=== PATIENT | female | born 1945 | race American Indian/Alaskan Native ===

== ENCOUNTER 2019-05-15 18:41 | Observation (INO) | payer MEDICARE ==
[2019-05-15] MEDS ORDERED: ASPIRIN PO ONE (19:10)
--- NOTE | 2019-05-15 19:49 | Emergency Department Report ---
ED Chest Pain HPI - General Chief Complaint: Chest Pain Stated Complaint: CHEST PAIN Time Seen by Provider: 05/15/19 19:24 Source: police Mode of arrival: Stretcher Limitations: No Limitations - History of Present Illness Initial Comments: This is a 73-year-old -[place] female who presents to the ED with chest discomfort, 6 out of 10, pressure, left-sided, radiating to her shoulders. She is a smoker, has a history of hypertension, rates his symptoms as severe in severity. She denies any exacerbating factors. She took some nitroglycerin wh en the pain started, with mild relief. She denies any diaphoresis, nausea, vomiting, previous episode of chest pain. MD Complaint: chest pain -: Gradual Onset: during rest Pain Location: left chest Pain Radiation: none Severity: moderate Severity scale (0 -10): 6 Quality: tightness Consistency: now resolved Improves With: nitroglycerin Worsens With: nothing re: denies: nausea, vomting, diaphoresis, dyspnea, sense of impending doom Other Symptoms: denies: cough, fever, syncope Treatments Prior to Arrival: none - Related Data Home Medications Medication Instructions Recorded Confirmed Last Taken Unobtainable 05/15/19 05/15/19 Unknown Allergies Allergy/AdvReac Type Severity Reaction Status Date / Time No Known Allergies Allergy Verified 05/15/19 18:57 Heart Score - HEART Score History: Moderately suspicious EKG: Non-specific Age: > 65 Risk factors: 1-2 risk factors Troponin: < normal limit HEART Score: 5 ED Review of Systems ROS: Stated complaint: CHEST PAIN Other details as noted in HPI Comment: All other systems reviewed and negative ENT: denies: ear pain Respiratory: denies: cough Cardiovascular: chest pain ED Past Medical Hx - Past Medical History Previous Medical History?: Yes Hx COPD: Yes Additional medical history: ANXIETY - Surgical History Past Surgical History?: Yes Additional Surgical History: tonsils, hysterectomy - Social History Smoking Status: Current Every Day Smoker Substance Use Type: None - Medications Home Medications: Home Medications Medication Instructions Recorded Confirmed Last Taken Type Unobtainable 05/15/19 05/15/19 Unknown History ED Physical Exam - General Limitations: No Limitations General appearance: alert, in no apparent distress - Head Head exam: Present: atraumatic, normocephalic - Eye Eye exam: Present: normal appearance, PERRL, EOMI Pupils: Present: normal accommodation - ENT ENT exam: Present: normal exam, normal orophraynx - Neck Neck exam: Present: normal inspection - Respiratory Respiratory exam: Present: normal lung sounds bilaterally - Cardiovascular Cardiovascular Exam: Present: regular rate, normal rhythm - GI/Abdominal GI/Abdominal exam: Present: soft, normal bowel sounds - Extremities Exam Extremities exam: Present: normal inspection - Back Exam Back exam: Present: normal inspection - Neurological Exam Neurological exam: Present: alert, oriented X3, CN II-XII intact - Psychiatric Psychiatric exam: Present: normal affect, normal mood - Skin Skin exam: Present: warm ED Course Vital Signs 05/15/19 05/15/19 05/15/19 18:56 19:05 19:11 Temperature 97.8 F Pulse Rate 81 Respiratory 16 Rate Blood Pressure 162/79 Blood Pressure 152/84 [Left] O2 Sat by Pulse 96 Oximetry 05/15/19 05/15/19 05/15/19 19:16 19:21 19:30 Temperature Pulse Rate 67 64 Respiratory 17 19 15 Rate Blood Pressure 162/79 162/79 Blood Pressure [Left] O2 Sat by Pulse 99 97 98 Oximetry 05/15/19 05/15/19 05/15/19 19:46 20:00 20:16 Temperature Pulse Rate 64 65 61 Respiratory 14 13 15 Rate Blood Pressure 162/79 152/71 152/71 Blood Pressure [Left] O2 Sat by Pulse 99 97 99 Oximetry 05/15/19 05/15/19 05/15/19 20:30 20:54 21:00 Temperature Pulse Rate Respiratory Rate Blood Pressure 152/71 152/71 152/71 Blood Pressure [Left] O2 Sat by Pulse 80 L 83 L 81 L Oximetry 05/15/19 05/15/19 05/15/19 21:16 21:30 21:46 Temperature Pulse Rate 67 Respiratory 12 Rate Blood Pressure 152/71 152/71 163/70 Blood Pressure [Left] O2 Sat by Pulse 81 L 79 L 100 Oximetry 05/15/19 05/15/19 05/15/19 22:00 22:16 22:30 Temperature Pulse Rate 60 Respiratory 20 Rate Blood Pressure 163/70 152/71 152/71 Blood Pressure [Left] O2 Sat by Pulse 100 99 100 Oximetry 05/15/19 05/15/19 05/15/19 22:46 23:00 23:16 Temperature Pulse Rate Respiratory Rate Blood Pressure 152/71 152/71 152/71 Blood Pressure [Left] O2 Sat by Pulse 99 100 99 Oximetry 05/15/19 05/15/19 05/16/19 23:30 23:46 00:00 Temperature Pulse Rate 63 Respiratory Rate Blood Pressure 152/71 152/71 152/71 Blood Pressure [Left] O2 Sat by Pulse 99 98 100 Oximetry 05/16/19 05/16/19 00:16 00:29 Temperature Pulse Rate 63 Respiratory Rate Blood Pressure 152/71 Blood Pressure [Left] O2 Sat by Pulse 100 Oximetry ED Medical Decision Making - Lab Data Result diagrams: 05/15/19 19:24 05/15/19 19:24 Critical care attestation.: If time is entered above; I have spent that time in minutes in the direct care of this critically ill patient, excluding procedure time. ED Disposition Clinical Impression: Chest pain in adult Disposition: DC-09 OP ADMIT IP TO THIS HOSP Is pt being admited?: Yes Does the pt Need Aspirin: Yes Condition: Stable
[2019-05-15 19:51] LABS: Basophils % (Auto) 0.6 % (0.0-1.8); Eosinophils # (Auto) 0.2 K/mm3 (0.0-0.4); Eosinophils % (Auto) 3.1 % (0.0-4.3); Hematocrit 37.7 % (30.3-42.9); Hemoglobin 12.5 gm/dl (10.1-14.3); Lymphocytes # (Auto) 3.1 K/mm3 (1.2-5.4); Lymphocytes % (Auto) 42.2 % (13.4-35.0); Mean Corpuscular HGB Conc 33 % (30-34); Mean Corpuscular Volume 95 fl (79-97); Monocytes # (Auto) 0.5 K/mm3 (0.0-0.8); Monocytes % (Auto) 7.4 % (0.0-7.3); Platelet Count 313 K/mm3 (140-440); Red Blood Count 3.97 M/mm3 (3.65-5.03); Red Cell Distribution Width 13.8 % (13.2-15.2)
--- NOTE | 2019-05-15 20:03 | XRay Report ---
CHEST 1 VIEW 7:36 PM INDICATION / CLINICAL INFORMATION: Chest Pain. COMPARISON: None available. FINDINGS: SUPPORT DEVICES: None. HEART / MEDIASTINUM: There is mild cardiomegaly. Pulmonary vasculature is normal. There is mild calci fication in the aortic arch without aneurysm. LUNGS / PLEURA: No significant pulmonary or pleural abnormality. No pneumothorax. ADDITIONAL FINDINGS: No significant additional findings. IMPRESSION: No acute pulmonary disease. Signer Name: Stiven Flores MD Signed: 05/15/2019 6:58 PM Workstation Name: [id number]
[2019-05-15 20:11] LABS: BUN/Creatinine Ratio 20; Blood Urea Nitrogen 12 mg/dL (7-17); Calcium 9.2 mg/dL (8.4-10.2); Hemolysis Index 3
[2019-05-16] MEDS ORDERED: TYLENOL PO PRN (00:04)
[2019-05-16] MEDS ORDERED: PERCOCET 5/325 PO PRN (00:04)
[2019-05-16] MEDS ORDERED: ZOFRAN IV PRN (00:04)
[2019-05-16] MEDS ORDERED: SODIUM CHLORIDE FLUSH SYRINGE 10 ML IV PRN (00:04)
[2019-05-16] MEDS ORDERED: APRESOLINE IV PRN (00:15)
--- NOTE | 2019-05-16 00:31 | History and Physical Report ---
History of Present Illness Date of admission: 05/15/19 23:22 Chief complaint: chest pain History of present illness: 73-year-old female who presents with chest pain 1 day. The pain is in her left chest radiating to her left neck and shoulder. She states the pain is dull, appears to be constant and it is about 7 out of 10. It is not related to exercise. She is very stressed out about it and she's feeling very anxious. She relates that she had a stress test sometime last year and was told it was negative. The patient states that she took all her blood pressure medications this morning and did not miss any meds. She is still a current every day smoker. Denies illicit drug use. -She denies any heavy lifting or any strenuous activity. Denies epigastric pain, denies acid reflux. - Past Medical History copd, anxiety disorder, htn, tobacco abuse - Surgical History tonsils, hysterectomy - Social History Smoking Status: Current Every Day Smoker Substance Use Type: None Review of systems Constitutional: no fever, no chills, no night sweats, no weight loss, no weight gain, no sweats, no anorexia, no fatigue, no weakness, no malaise, no lethargy Eyes: bilateral: other (no complaint of visual problems.) Ears, nose, mouth and throat: mouth pain, no ear pain, no ear discharge, no de creased hearing, no nose pain, no nasal congestion, no bleeding gums, no dental pain, no dysphagia, no hoarseness, no sore throat Cardiovascular: no orthopnea, no palpitations, no rapid/irregular heart beat, no phlebitis Respiratory: no cough with sputum, no excessive sputum, no hemoptysis, no wheez ing, no pleurisy, no pain Gastrointestinal: abdominal pain, nausea, no vomiting, no diarrhea, no hem atochezia, no loss of appetite Rectal: no pain, no incontinence, no bleeding Musculoskeletal: no neck stiffness, no neck pain, no shooting arm pain, no arm numbness/tingling, no low back pain, no shooting leg pain, no leg numbness/tingling Integumentary: no pruritis, no redness, no sores Neurological: no transient paralysis, no paralysis, no weakness Psychiatric: no memory loss, no change in sleep habits, no disorientation Endocrine: no heat intolerance, no polyphagia Hematologic/Lymphatic: no easy bruising, no easy bleeding Allergic/Immunologic: no allergic rhinitis Medications and Allergies Allergies Allergy/AdvReac Type Severity Reaction Status Date / Time No Known Allergies Allergy Verified 05/15/19 18:57 Home Medications Medication Instructions Recorded Confirmed Last Taken Type Unobtainable 05/15/19 05/15/19 Unknown History Active Meds: Active Medications Acetaminophen (Tylenol) 650 mg PO Q4H PRN PRN Reason: Pain MILD(1-3)/Fever >100.5/MCKEON Aspirin (Baby Aspirin) 324 mg PO ONCE ONE Stop: 05/16/19 00:45 Hydralazine HCl (Apresoline) 10 mg IV Q4H PRN PRN Reason: BP >160/100 Morphine Sulfate (Morphine) 2 mg IV Q4H PRN PRN Reason: Pain, Moderate (4-6) Stop: 05/18/19 00:03 Nicotine (Habitrol) 14 mg TD QDAY PATRICIO Ondansetron HCl (Zofran) 4 mg IV Q8H PRN PRN Reason: Nausea And Vomiting Oxycodone/Acetaminophen (Percocet 5/325) 1 tab PO Q6H PRN PRN Reason: Pain, Moderate (4-6) Stop: 05/18/19 00:03 Sodium Chloride (Sodium Chloride Flush Syringe 10 Ml) 10 ml IV BID PATRICIO Sodium Chloride (Sodium Chloride Flush Syringe 10 Ml) 10 ml IV PRN PRN PRN Reason: LINE FLUSH Exam - Constitutional Vitals: Temp Pulse Resp BP Pulse Ox 97.8 F 63 20 152/71 100 05/15/19 19:11 05/15/19 23:46 05/15/19 22:00 05/16/19 00:16 05/16/19 00:16 General appearance: Present: mild distress, well-nourished - EENT Eyes: Present: PERRL ENT: hearing intact, clear oral mucosa - Neck Neck: Present: supple, normal ROM - Respiratory Respiratory effort: normal Respiratory: bilateral: CTA - Cardiovascular Heart Sounds: Present: S1 & S2. Absent: rub, click - Extremities Extremities: pulses symmetrical, No edema Peripheral Pulses: within normal limits - Abdominal General gastrointestinal: Present: soft, non-tender, non-distended, normal bowel sounds Female genitourinary: Present: normal - Integumentary Integumentary: Present: clear, warm, dry - Musculoskeletal Musculoskeletal: gait normal, strength equal bilaterally - Psychiatric Psychiatric: appropriate mood/affect, intact judgment & insight - Neurologic Neurologic: CNII-XII intact, moves all extremities Results - Labs CBC & Chem 7: 05/15/19 19:24 05/15/19 19:24 Labs: Laboratory Last Values WBC 7.3 K/mm3 (4.5-11.0) 05/15/19 19:24 RBC 3.97 M/mm3 (3.65-5.03) 05/15/19 19:24 Hgb 12.5 gm/dl (10.1-14.3) 05/15/19 19:24 Hct 37.7 % (30.3-42.9) 05/15/19 19:24 MCV 95 fl (79-97) 05/15/19 19:24 MCH 31 pg (28-32) 05/15/19 19:24 MCHC 33 % (30-34) 05/15/19 19:24 RDW 13.8 % (13.2-15.2) 05/15/19 19:24 Plt Count 313 K/mm3 (140-440) 05/15/19 19:24 Lymph % (Auto) 42.2 % (13.4-35.0) H 05/15/19 19:24 [place] % (Auto) 7.4 % (0.0-7.3) H 05/15/19 19:24 Eos % (Auto) 3.1 % (0.0-4.3) 05/15/19 19:24 Baso % (Auto) 0.6 % (0.0-1.8) 05/15/19 19:24 Lymph # 3.1 K/mm3 (1.2-5.4) 05/15/19 19:24 [place] # 0.5 K/mm3 (0.0-0.8) 05/15/19 19:24 Eos # 0.2 K/mm3 (0.0-0.4) 05/15/19 19:24 Baso # 0.0 K/mm3 (0.0-0.1) 05/15/19 19:24 Seg Neutrophils % 46.7 % (40.0-70.0) 05/15/19 19:24 Seg Neutrophils # 3.4 K/mm3 (1.8-7.7) 05/15/19 19:24 Sodium 144 mmol/L (137-145) 05/15/19 19:24 Potassium 4.6 mmol/L (3.6-5.0) 05/15/19 19:24 Chloride 100.9 mmol/L (98-107) 05/15/19 19:24 Carbon Dioxide 33 mmol/L (22-30) H 05/15/19 19:24 15 mmol/L 05/15/19 19:24 BUN 12 mg/dL (7-17) 05/15/19 19:24 0.6 mg/dL (0.7-1.2) L 05/15/19 19:24 Estimated GFR > 60 ml/min 05/15/19 19:24 20 % 05/15/19 19:24 Glucose 93 mg/dL (65-100) 05/15/19 19:24 Calcium 9.2 mg/dL (8.4-10.2) 05/15/19 19:24 < 0.010 ng/mL (0.00-0.029) 05/15/19 22:07 - Imaging and Cardiology EKG: image reviewed (no acute findings) Chest x-ray: image reviewed (no acute findings) Assessment and Plan Assessment and plan: 73-year-old woman who presents with chest pain 1 day Chest pain EKG, chest x-ray, troponins negative Obtain echo and stress test Tobacco abuse Smoking cessation counseling performed for 10 minutes, nicotine patches when necessary Hypertensive urgency Hydralazine IV when necessary, awaiting nurse to update medical reconciliation DVT prophylaxis; Lovenox
[2019-05-16] MEDS ORDERED: ATIVAN PO PRN (00:32)
[2019-05-16] MEDS ORDERED: MORPHINE ONE (00:35)
[2019-05-16] MEDS: MORPHINE IV PRN ×2 (00:37→15:03)
[2019-05-16] MEDS ORDERED: BABY ASPIRIN PO ONE (00:44)
[2019-05-16 02:15] LABS: BUN/Creatinine Ratio 20; Blood Urea Nitrogen 10 mg/dL (7-17); Calcium 9.5 mg/dL (8.4-10.2); Hemolysis Index 6
[2019-05-16] MEDS ORDERED: LEXISCAN IV ONE (07:15)
[2019-05-16] MEDS: PROVENTIL IH SCH ×3 (07:50→16:19)
[2019-05-16] MEDS ORDERED: SODIUM CHLORIDE FLUSH SYRINGE 10 ML IV SCH (10:00)
[2019-05-16] MEDS ORDERED: HABITROL TD SCH (10:00)
[2019-05-16] MEDS ORDERED: NORCO 5/325 PO PRN (11:37)
[2019-05-16] MEDS ORDERED: ULTRAM PO PRN (11:37)
[2019-05-16] MEDS ORDERED: NACL 0.9% 1000 ML 1,000 ML IV SCH (12:00)
--- NOTE | 2019-05-16 14:52 | Discharge Summary ---
Providers - Providers Date of Admission: 05/15/19 23:22 Date of discharge: 05/16/19 Attending physician: IRIS MAYNARD 05/16/19 00:04 Consult to Cardiology [CONS] Routine Consulting Provider: Reason For Exam: chest pain 05/16/19 11:37 Consult to Cardiac Rehabilitation [CONS] Routine Reason For Exam: Cardiac Rehab Evaluation Primary care physician: AL ZARATE MD Hospitalization Condition: Stable Hospital course: Patient is 73 yo woman with a history of copd, hypertension and tobacco dependency who presents with [facility] with chest pains. Chest pain, costochrondritis suspected if stress test negative, i have spoken with Dr. Hernandez EKG, chest x-ray, troponins negative Tobacco abuse Smoking cessation counseling performed for 10 minutes, nicotine patches when necessary Hypertensive urgency Hydralazine IV when necessary, awaiting nurse to update medical reconciliation DVT prophylaxis; Lovenox Disposition: DC-01 TO HOME OR SELFCARE Time spent for discharge: 35 mintues Core Measure Documentation - Palliative Care Palliative Care/ Comfort Measures: Not Applicable - Core Measures Any of the following diagnoses?: none - VTE Discharge Requirements Deep Vein Thrombosis/Pulmonary Embolism Present on Admission: No Has pt received <5 days of overlap therapy or INR<2.0: No Anticoagulant overlap therapy prescribed at discharge: No Contraindication No Overlap Therapy order at DC: Not Indicated Exam - Physical Exam Narrative exam: Gen: WDWN, NAD, Awake, Alert, Orientated HEENT: NCAT, EOMI, PERRL, OP Clear Neck: supple, no adenopathy, no thyromegaly, no JVD CVS/Heart: RRR, normal S1S2, pulses present bilaterally Chest/Lungs: CTA B, Symmetrical chest expansion, good air entry bilaterally, reproducible left chest wall tenderness GI/Abdomen: soft, NTND, good bowel sounds, no guarding or rebound /Bladder: no suprapubic tenderness, no CVA or paraspinal tenderness Extermity/Skin: no c/c/e, no obvious rash MSK: FROM x 4 Neuro: CN 2-12 grossly intact, no new focal deficits Psych: calm - Constitutional Vitals: Temp Pulse Resp BP Pulse Ox 98.6 F 67 19 139/56 94 05/16/19 12:13 05/16/19 12:44 05/16/19 12:44 05/16/19 12:13 05/16/19 12:13 Plan Activity: other (no strenous activity unless cleared by PCP) Diet: low salt Follow up with: AL ZARATE MD [Primary Care Provider] - 3-5 Days
[2019-05-16 15:20] VITALS: BP 132/71
[2019-05-16] MEDS ORDERED: LOVENOX SUB-Q SCH (22:00)
--- NOTE | 2019-05-18 13:50 | Treadmill Report ---
ORDERING PHYSICIAN: Dr. Reyna. INDICATION: Chest pain. FINDINGS: There is no scintigraphic evidence of myocardial ischemia. There is evidence of moderate size fixed mid inferior wall defect noted on both rest and stress imaging with no reversible ischemia. Gated wall imaging revealing normal left ventricular size and normal wall motion with an ejection fraction measured at 62%. IMPRESSION: 1. No scintigraphic evidence of myocardial ischemia. 2. Moderate-sized fixed mid inferior wall defect likely due to overlying diaphragmatic attenuation artifact. 3. Normal left ventricular size and systolic function. 4. This is a low risk myocardial perfusion scan associated with 1-year cardiovascular event rate of less than 1%. [facility]# [id number] JESSICA/DIONE
== END 2019-05-16 17:00 | disposition home or self-care (01) ==
LOC: ED 18:41 → 2B-ACE 23:22 → INTOOBSV 23:22 → 4A 05-16 00:20
PROVIDERS: ADMIT Internal Medicine; ATTEND Internal Medicine
DX: R07.89 Other chest pain (principal); J44.9 Chronic obstructive pulmonary disease, unspecified; F41.9 Anxiety disorder, unspecified; I10 Essential (primary) hypertension; F17.200 Nicotine dependence, unspecified, uncomplicated; Z90.89 Acquired absence of other organs; Z90.710 Acquired absence of both cervix and uterus; Z79.82 Long term (current) use of aspirin; Z79.899 Other long term (current) drug therapy
CPT/HCPCS: 36415; 71045; 78452; 80048; 84484; 85025; 93005; 93010; 93017; 93306; 94640; 94760; 96374; 96376; 99284; 99406; A9502; G0378; J2270; J2785